=== PATIENT | male | born 1935 | race African-American/Black ===

== ENCOUNTER 2021-04-21 08:11 | Day surgery (SDC) | payer OTHER, BC ==
[2021-04-20 09:42] VITALS: BMI 25.0
[2021-04-21] MEDS ORDERED: MIDAZOLAM HCL 2 MG/2 ML SINGLE DOSE VIAL ONE (09:37)
[2021-04-21] MEDS ORDERED: LIDOCAINE HCL 2% (20ML MULTI-DOSE VIAL) ONE (09:55)
[2021-04-21 11:06] VITALS: TEMP 96
[2021-04-21 11:29] VITALS: BP 135/49; PULSE 64
== END 2021-04-21 12:00 | disposition home or self-care (01) ==
LOC: FASU 08:11
PROVIDERS: ATTEND Orthopaedic Surgery Hand Surgery
PROC: 01N50ZZ Release Median Nerve, Open Approach (ICD-10-PCS; principal; 2021-04-21 10:28)
DX: G56.01 Carpal tunnel syndrome, right upper limb (principal)